=== PATIENT | male | born 1975 | race Caucasian/White ===

== ENCOUNTER → 2021-02-28 | Outpatient (CLI) | payer SELFPAY ==
[~2021-02-28] MED LIST: ACHD5005 PO; CHOL3000 PO; CPR500T PO; CYCL10TA25 PO; DAPS25TA2 PO; ONDA8TAB13 PO; SULF1TAB38 PO
[2021-02-28 15:46] LABS: SEMEN VOLUME 5.6 ML (1.5-5.0)
== END ==
LOC: LAB 14:14
PROVIDERS: ATTEND Urology
DX: Z30.2 Encounter for sterilization (principal)
CPT/HCPCS: 89320